=== PATIENT | male | born 1960 | race African-American/Black ===

== ENCOUNTER 2023-06-13 01:42 | Emergency (ER) | payer BC ==
[2023-06-13 02:09] VITALS: BP 179/94; PULSE 76; RESP 18; TEMP 99.2; BMI 31.4
[2023-06-13] MEDS ORDERED: ACETAMINOPHEN 325 MG TABLET (FP) PO ONE (02:24)
[2023-06-13] MEDS ORDERED: ACETAMINOPHEN 325 MG TABLET (FP) ONE (02:45)
[2023-06-13] MEDS ORDERED: KETOROLAC TROMETHAMINE 30 MG/1 ML VIAL IM ONE (02:47)
[2023-06-13] MEDS ORDERED: DEXAMETHASONE 4 MG TABLET (FP) PO ONE (02:48)
[2023-06-13] MEDS ORDERED: LIDOCAINE HCL 2% JELLY 10 ML CARTRIDGE PR ONE (02:49)
[2023-06-13] MEDS ORDERED: LIDOCAINE HCL 2% JELLY 11 ML TP ONE (03:00)
[2023-06-13] MEDS ORDERED: DEXAMETHASONE 4 MG TABLET (FP) ONE (03:00)
[2023-06-13] MEDS ORDERED: KETOROLAC TROMETHAMINE 30 MG/1 ML VIAL ONE (03:00)
[2023-06-13 03:49] LABS: THROAT:GRP A STREP NOT DETECTED (NOTDETECTED)
== END 2023-06-13 04:11 | disposition home or self-care (01) ==
LOC: JER 01:42
PROC: 3E0233Z Introduction of Anti-inflammatory into Muscle, Percutaneous Approach (ICD-10-PCS; principal; 2023-06-13)
DX: R51.9 Headache, unspecified (principal); H92.02 Otalgia, left ear; H66.92 Otitis media, unspecified, left ear; B34.9 Viral infection, unspecified; Z20.822 Contact with and (suspected) exposure to COVID-19
CPT/HCPCS: 0241U-QW; 82962; 87651; 99284-25